=== PATIENT | female | born 1935 | race Caucasian/White ===

== ENCOUNTER 2019-06-24 09:56 | Inpatient (IN) | payer OTHER ==
[~2019-06-24] VITALS: Ht 167.6 cm; Wt 83.1 kg
[~2019-06-24 09:56] MED LIST: AMARYL2 MG PO; ASPIRIN ADULT L81 M1 PO; ASPIRIN CHEWABL81 MG PO; B-121000 MCG PO; B121000 MCG/1 IM; CARAFATE1 G1 PO; COLACE100 MG PO; COMBIGAN 0.2%-010 ML OP; COMBIGAN 0.2%-010 ML OU; COMBIGAN OP; COMFORT MC; D-1000 185 MG-11 TAB PO; DAYPRO600 M1 PO; FERROUS SULFAT325 MG PO; GLIPIZIDE10 M2 PO; GLUCOTROL10 MG PO; HEMOCYTE324 MG PO; K-LOR 20MEQ20 ME1 PO; KEFLEX500 M1 PO; KLOR-CON 1010 ME1 PO; LANTUS SOLOS100 U/M1 SC; LANTUS100 U/ML SC; LANTUS100 U/ML SQ; LASIX40 MG PO; LEVOTHYROXIN0.025 M1 PO; LEVOXYL50 MCG PO; LISINOPRIL/HCTZ1 TA4 PO; LOPRESSOR25 MG PO; LOVENOX30 MG/0.3 SC; MEDROL DOSEPAK4 MG PO; NATURE'S BLEND F1 MG PO; NITROFURANTOIN100 M9 PO; NORCO 5-325 TA1 EACH PO; PLAVIX75 M1 PO; PRILOSEC20 M1 PO; PRILOSEC20 M2 PO; PROTONIX40 MG PO; ROBAXIN750 MG PO; SIMVASTATIN20 MG PO; Synthroid,Levo50 MCG PO; TAPAZOLE5 MG PO; TOPROL XL25 MG PO; TRAD5TAB1 PO; TRAMADOL HCL50 MG PO; VITAMIN C100 M3 PO; VITAMIN D1000 IU PO; VITAMIN D22000 UNIT PO; XALATAN 0.005%2.5 ML OU; XALATAN 2.5 ML2.5 ML OP; XALATAN OP; ZESTRIL10 MG PO; ZOCOR20 MG PO; ZOLOFT25 MG PO
[2019-06-24 09:57] VITALS: BP 131/44
[2019-06-24 10:31] LABS: BILIRUBIN NEGATIVE (NEGATIVE); BLOOD 2+ (NEGATIVE); CLARITY CLOUDY (CLEAR); COLOR YELLOW (YELLOW); GLUCOSE NEGATIVE (NEGATIVE); KETONE NEGATIVE (NEGATIVE); LEUKO ESTERASE 3+ (NEGATIVE); NITRITE NEGATIVE (NEGATIVE); UROBILINOGEN 0.2 E.U./dl (0.2-1.0)
[2019-06-24 10:41] LABS: BACTERIA 4+; EPITHELIAL CELLS 20-30; RBC 41-50 rbc/hpf (0-2); WBC TNTC wbc/hpf (0-5)
[2019-06-24 10:43] LABS: BASO % 0.2 % (0.0-1.0); EOS % 0.1 % (1.0-4.0); HEMATOCRIT 42.6 % (37.0-47.0); HEMOGLOBIN 13.3 g/dl (12.0-16.0); LYMPH # 1.8 10*3/uL (1.3-4.4); LYMPH % 20.4 % (27.0-41.0); MEAN CORPUSCULAR HGB 31.2 pg (27.0-31.0); MEAN CORPUSCULAR HGB CONC 31.2 g/dl (33.0-37.0); MEAN PLATELET VOLUME 9.5 fl (9.6-12.3); MONO # 0.6 10*3/uL (0.1-1.0); MONO % 7.4 % (3.0-9.0); NEUT # 6.1 10*3/uL (2.3-7.9); NEUT % 71.4 % (47.0-73.0); PLATELET COUNT AUTOMATED 204 10*3/uL (130-400); RED BLOOD COUNT 4.26 10*6/uL (4.10-5.10); RED CELL DISTRI WIDTH 14.4 % (0-14.5); WHITE BLOOD COUNT 8.6 10*3/uL (4.8-10.8)
[2019-06-24 10:45] VITALS: BP 132/46
[2019-06-24 11:03] LABS: ALBUMIN 2.8 gm/dl (3.1-4.5); ALKALINE PHOSPHATASE 83 U/L (45-117); BUN 36 mg/dl (7-24); CHLORIDE 108 mmol/L (98-107); CREATININE 1.76 mg/dL (0.55-1.02); POTASSIUM 4.1 mmol/L (3.5-5.1); SGOT/AST 18 IU/L (3-35); SGPT/ALT 17 U/L (12-78); SODIUM 138 mmol/L (136-145); TOTAL PROTEIN 6.5 gm/dL (6.4-8.2); TROPONIN I < 0.015 ng/ml (<0.045)
[2019-06-24 12:23] VITALS: BP 138/48
--- NOTE | 2019-06-24 13:24 | NUR ---
ATTEMPTED TO CALL TO TAKE PT TO FLOOR BUT THEY ARE WORKING ON THE ROOM WILL THEY WILL CALL WHEN READY PER NEVA BIGGS
[2019-06-24] MEDS ORDERED: DONEPEZIL HCL10 MG PO (13:30)
[2019-06-24] MEDS ORDERED: LEVOTHYROXINE125 MCG PO (13:32)
[2019-06-24] MEDS ORDERED: VITAMIN D3125 MC1 PO (13:33)
--- NOTE | 2019-06-24 13:50 | NUR ---
A 83, admitted to , under the services of SHAHRAM Esparza DO with a diagnosis of AFIB WITH SLOW VENTRICULAR RESPONSE. Chief complaint is MULTIPLE COMPLAINTS. Patient arrived via bed from ER. Monitor applied. Initial assessment completed. Vital signs taken and recorded. SHAHRAM ESPARZA DO notified of admission to the unit. Orders received. See assessment for past medical history, medications and allergies. Patient and/or family oriented to unit. [facility] visitation policy reviewed. Clothing/patient valuable form completed. NEVA MATHIS
[2019-06-24 13:58] VITALS: BP 149/54
[2019-06-24] MEDS ORDERED: VITAMIN B-12500 MC3 SL (14:33)
[2019-06-24 16:00] VITALS: BP 146/52
--- NOTE | 2019-06-24 16:46 | NUR ---
DR. BREWER NOTIFIED OF BLOOD SUGAR OF 20. DEXTROSE HUNG. ORDERED TO GIVE PT CRACKERS AND PEANUT BUTTER AND CRACKERS
--- NOTE | 2019-06-24 17:00 | NUR ---
DR. JOHNSON NOTIFIED OF CONSULT. WILL SEE PT TOMORROW.
--- NOTE | 2019-06-24 17:30 | NUR ---
PT BLOOD SUGAR 126 AT THIS TIME. PT VOICES NO COMPLAINTS, CALL LIGHT IN REACH
[2019-06-24 20:00] VITALS: BP 121/41
[2019-06-25] VITALS: BP 144/49
[2019-06-25 07:56] LABS: BASO % 0.3 % (0.0-1.0); EOS # 0.1 10*3/uL (0.0-0.4); EOS % 1.3 % (1.0-4.0); HEMOGLOBIN 12.2 g/dl (12.0-16.0); LYMPH # 2.5 10*3/uL (1.3-4.4); MEAN CELL VOLUME 96.7 fl (81.0-99.0); MEAN CORPUSCULAR HGB CONC 32.1 g/dl (33.0-37.0); MEAN PLATELET VOLUME 9.9 fl (9.6-12.3); MONO # 0.7 10*3/uL (0.1-1.0); MONO % 9.3 % (3.0-9.0); NEUT # 4.3 10*3/uL (2.3-7.9); NEUT % 55.7 % (47.0-73.0); PLATELET COUNT AUTOMATED 201 10*3/uL (130-400); RED BLOOD COUNT 3.93 10*6/uL (4.10-5.10); RED CELL DISTRI WIDTH 14.3 % (0-14.5); WHITE BLOOD COUNT 7.7 10*3/uL (4.8-10.8)
[2019-06-25 08:00] VITALS: BP 108/50
[2019-06-25 08:30] LABS: CREATININE 1.31 mg/dL (0.55-1.02); POTASSIUM 4.1 mmol/L (3.5-5.1)
[2019-06-25 08:32] LABS: PHOSPHOROUS 2.2 mg/dL (2.5-4.9)
[2019-06-25 08:41] LABS: THYROID STIM HORMONE (HS) 1.09 uIU/ml (0.358-4.75)
--- NOTE | 2019-06-25 09:00 | NUR ---
case management visits with patient, she states she lives at home alone, she states she has a stick she uses for ambulation, she states she has people who help her 2 x a day but doesn't know who they are or if they are from a company, case management will contact patient's family regarding discharge plans
[2019-06-25 09:01] LABS: VITAMIN D, 25-HYDROXY 52.4 ng/mL (30-100)
--- NOTE | 2019-06-25 09:40 | NUR ---
SPOKE WITH DR JOHNSON, NOTIFIED HR IN THE 50'S SB ON THE MONITOR AND BP 108/52. ORDERS RECIEVED TO HOLD DOSE OF TOPROL THIS AM
--- NOTE | 2019-06-25 11:19 | NUR ---
CARL MOTIFIED OF CONSULT.
--- NOTE | 2019-06-25 15:22 | NUR ---
case management and conservation planner visited with patient and daughter, daughter stated she lives out of town and her aunt and uncle help her mom, her mom has services from [employer] several times a day, daughter felt patient is weak and may need to go to rehab prior to returning home, she would like her mom referred to [facility] and also [facility], called hospitalist nurse director and asked for physical therapy orders and conservation planner will send referral to both facilities, insurance precert will need obtained prior to patient being discharged
[2019-06-25 16:00] VITALS: BP 130/48
--- NOTE | 2019-06-25 19:30 | NUR ---
PT RESTING IN BED. DAUGHTER AT BEDSIDE. PT STATES SHE IS FEELING GOOD TODAY. BLOOD SUGARS HAVE BEEN STABLE. ASSESSMENT COMPLETE. RESPIRATIONS EASY AND REGULAR. CALL LIGHT WITHIN REACH. WILL CONTINUE TO MONITOR.
[2019-06-25 20:00] VITALS: BP 127/73
[2019-06-26] VITALS: BP 142/84
--- NOTE | 2019-06-26 04:10 | NUR ---
24 HR chart check completed.
--- NOTE | 2019-06-26 07:10 | NUR ---
REPORT RECEIVED. PT SLEEPING AT THIS TIME. NO S/S OF DISTRESS. CALL LIGHT IN REACH
--- NOTE | 2019-06-26 07:45 | NUR ---
Occupational therapy orders received and OT evaluation completed in full on floor four. Patient precautions include FALL RISK, BED/CHAIR ALARM, WEAKNESS, WW, UNSTEADY STANDING BALANCE. Per OT clementina, OT recommends SNF[place], [address]. Thank you for the referral. Theresa Emerson, OTR/L
--- NOTE | 2019-06-26 07:45 | NUR ---
Faxed demographics to [facility] for benefits check.
[2019-06-26 08:00] VITALS: BP 138/62
--- NOTE | 2019-06-26 08:40 | NUR ---
PHYSICAL THERAPY Alix completed moderate level of complexity 71144 recomend SNF at discharge PT to work on transfers,amb, balance/safety and strengthening.Full report to follow. Beulah Agustin PT
--- NOTE | 2019-06-26 09:00 | NUR ---
case management visits with patient, daughter present, [facility] has been [facility], case management/meeting/event planner will follow for accepatance and insurance precert
--- NOTE | 2019-06-26 10:00 | NUR ---
PT DAUGHTER AT BEDSIDE. NO COMPLAINTS/CONCERNS. CALL LIGHT IN REACH
--- NOTE | 2019-06-26 10:55 | NUR ---
Patient requested a referral to [facility]. Benefits are ok for this location. Full referral faxed, requires precert.
[2019-06-26 12:00] VITALS: BP 128/67
[2019-06-26 16:00] VITALS: BP 128/55
--- NOTE | 2019-06-26 19:40 | NUR ---
PT RESTING IN BED. DAUGHTER AT BEDSIDE. PT ALERT AND ORIENTED X3. BLOOD SUGARS HAVE BEEN GOOD. NO COMPLAINTS AT THIS TIME. DENIES THE NEED FOR ANYTHING AT THIS TIME. ASSESSMENT COMPLETE. RESPIRATIONS EASY AND REGULAR. WILL CONTINUE TO MONITOR.
[2019-06-26 20:00] VITALS: BP 138/60
--- NOTE | 2019-06-26 22:31 | NUR ---
24 HR chart check completed.
[2019-06-27] VITALS: BP 155/61
--- NOTE | 2019-06-27 07:57 | NUR ---
Patient has been accepted to [facility] [place] PASS/RR has been started/precert has been started. Waiting on auth.
[2019-06-27 08:00] VITALS: BP 142/64
--- NOTE | 2019-06-27 09:30 | NUR ---
PHYSICAL THERAPY Patient seen this am 1;1 for therapy visit and was resting supine in bed following nursing visit upon therapist arrival. Patient identified by name / and was very soft spoken this morning. OT office assistant was also present for observation only this session as patient presented with continuos IV treatment. Patient reports no new c/o's at this time and transfers supine to sit EOB with MOD A. Patient then performed sit to stand MIN A with use of wh walker standing support, tolerating approx 45 seconds static stand each trial. Patient completed SPT to bedside chair, wh walker, MIN A, demonstrating very slow step sequence and v/c to improve upright posture. Patient also fatigues quickly secondary to increased chest congestion, with mild coughing episodes. Patient remained in bedside chair with call light, tray table, telephone and body alarm for safety. Will continue per POC as tolerated, total treatment time 14 minutes. Collin Jenkins, LINING SETTER
--- NOTE | 2019-06-27 09:45 | NUR ---
OT NOTE Pt was seen this A.M. 1:1 for 20 minute OT session. Upon arrival pt was supine in bed. Pt identified by name and and had no complaints at this time. Pt presented to therapy with IV in LUE which remained in place throughout entire session. Pt transferred supine to sit EOB with modA for assist with UB and moving to the EOB. Pt completed multiple sit to stand transfers from bed level with Emma and use of w/w for UE support. Challenged pt's static standing tolerance needed for increased I in self care tasks and functional transfers, pt was able to tolerate aprox 60 seconds before sitting due to fatigue. Throughout pt was educated on energy conservation techniques for increased I and enhanced safety, pt verbalized understanding. Pt then completed standing pivot from the EOB to the recliner with Emma and use of w/w for UE support. There she was left sitting upright with call light in hand, tray table in place, and body alarm activated for safety. Continue with rec D/C plan to SNF. WANDA Edmonds
--- NOTE | 2019-06-27 10:56 | NUR ---
Updated clinicals and therapy notes faxed to [facility] per request to continue precert. Waiting on auth
--- NOTE | 2019-06-27 11:14 | NUR ---
Patient has received auth for [facility]. Patient can go if medically stable for discharge.
--- NOTE | 2019-06-27 11:23 | NUR ---
In to see patient and daughter to notify they have authorization to go to [facility] and hospitalists have been notified. Daughter stated she will go get patient warm clothes while patient eats lunch and transport her in a little while. NH, nursing/inside steward/stewardess notified.
[2019-06-27] MEDS ORDERED: Humalog SQ (11:36)
[2019-06-27 12:00] VITALS: BP 120/50
[2019-06-27] MEDS ORDERED: XARE15TA PO (14:06)
--- NOTE | 2019-06-27 15:15 | NUR ---
Discharge instructions reviewed with patient/family. Patient receptive and verbalizes understanding. Follow-up care arranged. Written instructions given to patient/family. HEPLOCK AND TECHNOLOGY INSTRUCTOR DISCONTINUED. PT DISCHARGED VIA DAUGHTER'S PRIVATE CAR. REPORT GIVEN. VAL WINTERS
--- NOTE | 2019-06-27 15:55 | NUR ---
OCCUPATIONAL THERAPY CO-SIGN I approve of the Occupational Therapy notes written above. MARGUERITE CUEVAS OTR/Grady
--- NOTE | 2019-06-28 10:50 | NUR ---
PHYSICAL THERAPY CO-SIGN I approve of the Physical Therapy notes written above. Beulah Agustin PT
== END 2019-06-27 15:27 | disposition other institution (70) | DRG 637 ==
LOC: ED 09:56 → 4E 12:15 → EDHOLD 12:15 → 4E 13:04
PROVIDERS: Emergency Medicine; Internal Medicine; ADMIT Internal Medicine
DX: E11.649 Type 2 diabetes mellitus with hypoglycemia without coma (principal); G93.41 Metabolic encephalopathy; N30.01 Acute cystitis with hematuria; I48.91 Unspecified atrial fibrillation; H40.9 Unspecified glaucoma; N18.3 Chronic kidney disease, stage 3 (moderate); E11.22 Type 2 diabetes mellitus with diabetic chronic kidney disease; E11.319 Type 2 diabetes mellitus with unspecified diabetic retinopathy without macular edema; E03.9 Hypothyroidism, unspecified; E55.9 Vitamin D deficiency, unspecified; I25.10 Atherosclerotic heart disease of native coronary artery without angina pectoris; E78.5 Hyperlipidemia, unspecified; F32.9 Major depressive disorder, single episode, unspecified; G31.84 Mild cognitive impairment of uncertain or unknown etiology; Z95.1 Presence of aortocoronary bypass graft; Z82.49 Family history of ischemic heart disease and other diseases of the circulatory system; Z79.82 Long term (current) use of aspirin

== ENCOUNTER 2019-08-11 18:52 | Inpatient (IN) | payer OTHER ==
[~2019-08-11] VITALS: Ht 167.6 cm; Wt 66.3 kg
[~2019-08-11 18:52] MED LIST changes: +DONEPEZIL HCL10 MG PO; +Humalog SQ; +LEVOTHYROXINE125 MCG PO; +VITAMIN B-12500 MC3 SL; +VITAMIN D3125 MC1 PO; +XARE15TA PO
[2019-08-11 18:59] VITALS: BP 133/48
--- NOTE | 2019-08-11 19:43 | NUR ---
PT W/O COMPLAINTS VOICED,SAFETY PRECAUTIONS INTACT AND CALL LIGHT WITHIN REACH.
[2019-08-11 19:55] LABS: BILIRUBIN NEGATIVE (NEGATIVE); BLOOD 3+ (NEGATIVE); CLARITY TURBID (CLEAR); COLOR BROWN (YELLOW); GLUCOSE NEGATIVE (NEGATIVE); KETONE 2+ (NEGATIVE); LEUKO ESTERASE 2+ (NEGATIVE); NITRITE POSITIVE (NEGATIVE); SPECIFIC GRAVITY 1.015 (1.005-1.030)
[2019-08-11 20:01] LABS: BACTERIA 4+; WBC TNTC wbc/hpf (0-5)
[2019-08-11 21:07] LABS: BASO % 0.2 % (0.0-1.0); EOS % 0.1 % (1.0-4.0); HEMATOCRIT 43.8 % (37.0-47.0); HEMOGLOBIN 14.9 g/dl (12.0-16.0); LYMPH # 3.9 10*3/uL (1.3-4.4); LYMPH % 34.7 % (27.0-41.0); MEAN CELL VOLUME 92.6 fl (81.0-99.0); MEAN CORPUSCULAR HGB 31.5 pg (27.0-31.0); MEAN PLATELET VOLUME 10.6 fl (9.6-12.3); MONO # 0.3 10*3/uL (0.1-1.0); MONO % 2.9 % (3.0-9.0); NEUT # 6.9 10*3/uL (2.3-7.9); NEUT % 61.6 % (47.0-73.0); PLATELET COUNT AUTOMATED 348 10*3/uL (130-400); RED BLOOD COUNT 4.73 10*6/uL (4.10-5.10); RED CELL DISTRI WIDTH 17.2 % (0-14.5); WHITE BLOOD COUNT 11.2 10*3/uL (4.8-10.8)
--- NOTE | 2019-08-11 21:11 | NUR ---
LAB STATES BLOOD SAMPLE HEMOLYZED PER COLOR OF BLOOD. WILL NOTIFY PRIMARY RN.
[2019-08-11 21:19] VITALS: BP 136/58
--- NOTE | 2019-08-11 22:30 | NUR ---
PT INCONTENT OF URINE, BRIEF CHANGED, JACI CARE PROVIDED. PT GOWN CHANGED. REDNESS AND SM SCRATCH TO L BUTTOCK NOTED, NO OPEN WOUNDS NOTED. PT REPOSITIONED FOR COMFORT. CALL LIGHT IN REACH. WILL CONTINUE TO MONITOR.
[2019-08-11 23:11] LABS: ALBUMIN 3.1 gm/dl (3.1-4.5); CREATININE 2.68 mg/dL (0.55-1.02); TOTAL PROTEIN 5.9 gm/dL (6.4-8.2)
--- NOTE | 2019-08-11 23:30 | NUR ---
UPDATED PT FAMILY CHRIS, , OF PT ADMISSION STATUS.
--- NOTE | 2019-08-11 23:35 | NUR ---
PT RESTING ON CART, CALL LIGHT IN REACH. CALM, COOPERATIVE, PLEASENTLY CONFUSED . WILL CONTINUE TO MONITOR.
[2019-08-12] VITALS (9 sets, daily range): BP systolic 131–165; BP diastolic 45–67
--- NOTE | 2019-08-12 00:10 | NUR ---
THIS RN AT BEDSIDE ADMINISTERING MEDICATIONS, PT COUGHING UP THICK, BROWN/RED TINGED MUCOUS. ED MD MADE AWARE. WILL CONTINUE TO MONITOR. PT. PT DENIES PAIN. PT CONTINUES TO BE PLEASENTLY CONFUSED.
--- NOTE | 2019-08-12 01:00 | NUR ---
A 83, admitted to , under the services of TERA Gupta DO with a diagnosis of UTI, HAKEEM. Chief complaint is DECREASED APPETITE. Patient arrived via bed from ER. Monitor applied. Initial assessment completed. Vital signs taken and recorded. TERA GUPTA DO notified of admission to the unit. Orders received. See assessment for past medical history, medications and allergies. Patient and/or family oriented to unit. [facility] Clothing/patient valuable form completed. SALVADOR HARGROVE
[2019-08-12] MEDS ORDERED: GLUCOPHAGE1000 MG PO (01:23)
[2019-08-12] MEDS ORDERED: GLUCOPHAGE500 M1 PO (01:24)
[2019-08-12] MEDS ORDERED: LOPRESSOR25 MG PO (01:25)
[2019-08-12] MEDS ORDERED: MYLANTA MAXIMU355 M1 PO (01:28)
[2019-08-12] MEDS ORDERED: XARE20MG PO (01:31)
--- NOTE | 2019-08-12 01:33 | NUR ---
MED REC COMPLETED WITH LIST FROM LONGTERM
--- NOTE | 2019-08-12 01:45 | NUR ---
DISCUSSED WITH DR. GUPTA AT THIS TIME THAT PATIENT HAS A PAPER DATED 07/23/[address] PRIETO ALONG WITH THE PATIENTS POWER OF DATA ANALYSIS INTERN MATILDE BARRERA, HAVE MADE THE PATIENT A DO NOT RESUSCITATE, BUT IT DOES NOT SPECIFY WHETHER THE PATIENT IS A COMFORT CARE ARREST, OR COMFORT CARE. SHE STATED TO MAKE THE PATIENT A COMFORT CARE ARREST AT THIS TIME AND GET CLARIFICATION FROM THE POWER OF DATA ANALYSIS INTERN.
--- NOTE | 2019-08-12 02:10 | NUR ---
SPOKE WITH DR. ACKERMAN AT THIS TIME PER REQUEST OF DR. GUPTA. DR. GUPTA INQUIRING ABOUT WHAT FLUIDS TO GIVE THE PATIENT. DISCUSSED WITH DR. ACKERMAN THE PATIENTS LABS (POTASSIUM,BUN,CREATININE,CHLORIDE,SODIUM,CALCIUM). NOTIFIED HER PATIENT WAS ADMITTED WITH UTI AND ALTERED MENTAL STATUS. CANDY TAVARES INQUIRED IF SHE SHOULD PUT 0.45% NS AT 60ML/HR ON THE PATINT. DR. ACKERMAN STATED TO GO AHEAD AND GIVE HER 0.9% NS AT 60ML/HR DUE TO HER AGE. NOTIFIED HER OF MEDICATIONS PATIENT RECIEVED IN THE ER WELL.
--- NOTE | 2019-08-12 02:55 | NUR ---
CANDY TAVARES MADE AWARE OF PATIENT HAVING 1200ML TOTAL OF NS IN THE ER AND THAT THE BOLUS WAS STOPPED WHEN THE PATIENT GOT UP TO THE FLOOR
--- NOTE | 2019-08-12 04:00 | NUR ---
NOTIFIED DR. GUPTA OF PATIENTS WOUNDS
--- NOTE | 2019-08-12 04:36 | NUR ---
NOTIFIED DR. GUPTA AT THIS TIME THAT PATIENT IS DIPPING DOWN INTO THE 40'S. PATIENT IS ASYMPTOMATIC, SLEEPING. IV FLUIDS CONTINUED TO INFUSE. PATIENT HAS HISTORY OF BEING AFIB WITH A LOW RATE AND DR. GUPTA IS AWARE. WILL MONITOR
--- NOTE | 2019-08-12 06:35 | NUR ---
VALTINO Megan [id number] Please refer to the physician's history and physical for past medical history, comorbid conditions, and allergies. Diagnosis: UTI METABOLIC ENCEPHALOPATHY ACUTE RENAL INSUFF Iker Score: 14,MODERATE RISK WOUND DESCRIPTIONS: Wound Number: 1 Location of the wound: right great toe Type of wound: unstageable Thickness: Full Size: 0.8cm x 1.4cm x <0.1cm Tunneling: none Undermining: none Sinus Tract: none Presence of Exudate: none Amount: None Color: Red Odor: None Periwound Skin Appearance: Normal Wound edges: approximated Pain (associated with wound): none at time of assessment How does patient state this happened? pt unable to state how this happened Wound Number: 2 Location of the wound: right heel Type of wound: unstageable Thickness: Full Size: 1.4cm x 1.5cm x <0.1cm Tunneling: none Undermining: none Sinus Tract: none Presence of Exudate: none Amount: None Color: Brown, yellow Odor: None Periwound Skin Appearance: Erythema Wound edges: approximated Pain (associated with wound): none at time of assessment How does patient state this happened? pt unable to state how this happened Wound Number: 3 Location of the wound: left heel Type of wound: unstageable Thickness: Full Size: 2.0cm x 2.6cm x <0.1cm Tunneling: none Undermining: none Sinus Tract: none Presence of Exudate: none Amount: None Color: Brown Odor: None Periwound Skin Appearance: Erythema Wound edges: approximated Pain (associated with wound): none at time of assessment How does patient state this happened? pt unable to state how this happened Wound Number: 4 Location of the wound: left buttocks Type of wound: DTI Size: 7.0cm x 0.7cm x <0.1cm Tunneling: none Undermining: none Sinus Tract: none Presence of Exudate: none Amount: None Color: Purple, dark red Odor: None Periwound Skin Appearance: Normal Wound edges: approximated Pain (associated with wound): none at time of assessment How does patient state this happened? pt unable to state how this happened Wound Number: 5 Location of the wound: coccyx Type of wound: DTI Size: 2.2cm x 1.0cm x <0.1cm Tunneling: none Undermining: none Sinus Tract: none Presence of Exudate: none Amount: None Color: Purple, dark red Odor: None Periwound Skin Appearance: Normal Wound edges: approximated Pain (associated with wound): none at time of assessment How does patient state this happened? pt unable to state how this happened Wound Number: 6 Location of the wound: right buttocks Type of wound: DTI Size: 0.7cm x 1.2cm x <0.1cm Tunneling: none Undermining: none Sinus Tract: none Presence of Exudate: none Amount: None Color: Purple, dark red Odor: None Periwound Skin Appearance: Normal Wound edges: approximated Pain (associated with wound): none at time of assessment How does patient state this happened? pt unable to state how this happened Wound Number: 7 Location of the wound: right lower abdominal fold Thickness: Partial Size: 0.7cm x 8.0cm x <0.1cm Tunneling: none Undermining: none Sinus Tract: none Presence of Exudate: Serous Amount: Light Color: Red Odor: None Periwound Skin Appearance: Normal Wound edges: approximated Pain (associated with wound): none at time of assessment How does patient state this happened? pt unable to state how this happened Patient has multiple red blanchable areas noted to bilateral feet at time of assessment. No open areas noted at time of assessment. No draiange noted at time of assessment. Surface the patient is resting on: Isoflex SKIN PREVENTION RECOMMENDATION: 1. Pressure redistribution support surface as appropriate 2. Elevate heels 3. Remove boots/TEDS every shift and reapply 4. Head of bed 30 degrees as tolerated 5. Assess nutrition and hydration 6. Manage moisture 7. Avoid the use of containment devices while in bed 8. Use absorptive products on surfaces limit layers of linens on bed 9. Turn and reposition every 1-2 hours in bed and every 1 hour in chair as tolerated 10. Weight shifts every 15 minutes while up in chair 11. Offloading with pillows or device to keep heels elevated off bed 12. Monitor skin at least every shift 13. Inspect under medical devices twice a day WOUND TREATMENT RECOMMENDATIONS: Venous and arterial studies to BLE's due to non-healing wound Consult podaitry for areas to bilateral heels and right great toe. Heel raiser pro boots to bilateral feet while in bed Wheelchair cushion when oob DTI guidelines: Apply sureprep to right buttocks, left buttocks and coccyx allow time to dry then apply optifoam sacral gentle daily and prn for soiling Unstageable guidelines: Cleanse right great toe, right heel and left heel with nss and apply betadine soaked adaptic cover with abd pad daily and prn for soiling. Partial thickness guidelines: Cleanse right abdominal fold with nss and apply sureprep around the wound hydrogel to wound bed and cover with optifoam gentle every 2 days and prn for soiling.
[2019-08-12 07:01] LABS: BASO % 0.2 % (0.0-1.0); EOS % 0.3 % (1.0-4.0); HEMATOCRIT 42.6 % (37.0-47.0); LYMPH # 4.6 10*3/uL (1.3-4.4); LYMPH % 39.8 % (27.0-41.0); MEAN CELL VOLUME 94.9 fl (81.0-99.0); MEAN CORPUSCULAR HGB 31.2 pg (27.0-31.0); MEAN CORPUSCULAR HGB CONC 32.9 g/dl (33.0-37.0); MEAN PLATELET VOLUME 10.1 fl (9.6-12.3); MONO # 0.8 10*3/uL (0.1-1.0); MONO % 7.1 % (3.0-9.0); NEUT % 51.3 % (47.0-73.0); PLATELET COUNT AUTOMATED 300 10*3/uL (130-400); RED BLOOD COUNT 4.49 10*6/uL (4.10-5.10); RED CELL DISTRI WIDTH 16.9 % (0-14.5); WHITE BLOOD COUNT 11.6 10*3/uL (4.8-10.8)
[2019-08-12 07:17] LABS: CREATININE 2.55 mg/dL (0.55-1.02)
[2019-08-12 07:27] LABS: FREE T4 0.84 ng/dl (0.76-1.46)
[2019-08-12 07:32] LABS: POTASSIUM 4.6 mmol/L (3.5-5.1); THYROID STIM HORMONE (HS) 23.5 uIU/ml (0.358-4.75)
[2019-08-12 07:34] LABS: PHOSPHOROUS 0.2 mg/dL (2.5-4.9)
--- NOTE | 2019-08-12 07:45 | NUR ---
NOTIFIED REGARDING CRITICAL PHOS LEVEL. ON PHONE WITH AT THIS TIME.
--- NOTE | 2019-08-12 08:07 | NUR ---
Nursing screen received and chart reveiwed. Patient admitted from [facility] with decreased appetite and increased confusion, UTI. If patient should have a decline in ADLs then refer to OT. Thank you. Sandie Busby OTR/L
--- NOTE | 2019-08-12 08:16 | NUR ---
PHYSICAL THERAPY Screen received pt admitted with metabolic encephalopathy with UTI. Pt resident [facility]. Please consult PT if pt has a decline in functional status below baseline, thank you. Beulah Agustin PT
--- NOTE | 2019-08-12 08:52 | NUR ---
Dr. Rand notified of wound care recommendations.
--- NOTE | 2019-08-12 10:03 | NUR ---
IN TO SEE PATIENT.
--- NOTE | 2019-08-12 11:17 | NUR ---
Patient is LTC from [facility]. DISPLAY ARTIST faxed updated inpatient information on this date. Patient will return upon discharge. DISPLAY ARTIST will continue to follow and address needs as they arise.
--- NOTE | 2019-08-12 13:30 | NUR ---
Telesales Specialist in to talk to patient. Patient states lives at [facility] with skilled staff. There are 0 steps in the home. Physician: Simin Pharmacy: [facility] Home health services: None Patient's level of ADLs: MODERATE ASSIST Patient has working utilities: yes DME: skilled facility Follow-up physician's appointment after d/c: yes Does patient want to access PORTAL?: non Discharge plan is for patient to return back to [facility]. JERAD MENDOZA
--- NOTE | 2019-08-12 16:02 | NUR ---
WOUND DRESSINGS APPLIED BY RAUL BIGGS.
--- NOTE | 2019-08-12 19:15 | NUR ---
PER MEKA TAVARES ORDER 2V CHEST XRAY FOR IN THE MORNING.
[2019-08-13] VITALS: BP 145/55
--- NOTE | 2019-08-13 02:00 | NUR ---
CALLED DR. ACKERMAN TO CLARIFY ORDERS. D/C ALL IV PHOSPHORUS ORDERS. DR ACKERMAN ONLY WANTED TO HAVE 2 BAGS TOTAL. ORDERS D/C WILL CONTINUE TO MONITOR.
--- NOTE | 2019-08-13 04:17 | NUR ---
Upon discharge recommend patient to follow up for wound care in outpatient setting continue current wound care orders at discharging facility.
[2019-08-13 06:12] LABS: BASO % 0.2 % (0.0-1.0); EOS # 0.1 10*3/uL (0.0-0.4); EOS % 0.6 % (1.0-4.0); HEMATOCRIT 39.2 % (37.0-47.0); HEMOGLOBIN 13.2 g/dl (12.0-16.0); LYMPH # 4.5 10*3/uL (1.3-4.4); LYMPH % 42.7 % (27.0-41.0); MEAN CELL VOLUME 92.5 fl (81.0-99.0); MEAN CORPUSCULAR HGB 31.1 pg (27.0-31.0); MEAN CORPUSCULAR HGB CONC 33.7 g/dl (33.0-37.0); MEAN PLATELET VOLUME 9.9 fl (9.6-12.3); MONO # 0.8 10*3/uL (0.1-1.0); MONO % 7.6 % (3.0-9.0); NEUT # 5.1 10*3/uL (2.3-7.9); NEUT % 48.1 % (47.0-73.0); PLATELET COUNT AUTOMATED 271 10*3/uL (130-400); RED BLOOD COUNT 4.24 10*6/uL (4.10-5.10); RED CELL DISTRI WIDTH 16.8 % (0-14.5); WHITE BLOOD COUNT 10.5 10*3/uL (4.8-10.8)
[2019-08-13 06:19] LABS: CREATININE 2.16 mg/dL (0.55-1.02); PHOSPHOROUS 3.3 mg/dL (2.5-4.9)
[2019-08-13 06:54] LABS: POTASSIUM 3.4 mmol/L (3.5-5.1)
[2019-08-13 08:00] VITALS: BP 132/52
--- NOTE | 2019-08-13 08:00 | NUR ---
Dr. Flores notified of wound care recommendations
--- NOTE | 2019-08-13 09:00 | NUR ---
DR. HUTTON AWARE OF CONSULT.
--- NOTE | 2019-08-13 10:30 | NUR ---
Possible discharge back to [facility] either today or tomorrow per multidisciplinary discharge planning meeting.
[2019-08-13 12:00] VITALS: BP 121/66
--- NOTE | 2019-08-13 12:32 | NUR ---
PHYSICAL THERAPY PT evaluation attempted. Patient out of room for Ultrasound. Will try again at a later time/date. Thank you. Citlaly Johnson,PT,DPT
[2019-08-13 13:55] LABS: VITAMIN D, 25-HYDROXY 44.2 ng/mL (30-100)
[2019-08-13 13:56] LABS: PTH INTACT 22.8 pg/mL (18.5-88.0)
--- NOTE | 2019-08-13 14:07 | NUR ---
PAO faxed updates to [facility] on this date. Patient can return upon medical stabalization.
--- NOTE | 2019-08-13 15:38 | NUR ---
Occupational Therapy evaluation completed on four with full evaluation to follow. Recommend occupational therapy per plan of care and SNF upon discharge. Thank you for this referral. Theresa Emerson OTR/L
--- NOTE | 2019-08-13 15:38 | NUR ---
PHYSICAL THERAPY Physical Therapy evaluation completed on 4E with full evaluation to follow. Moderate complexity PT evaluation per chart review and evaluation, [address]. Recommend physical therapy per plan of care and SNF upon discharge. Thank you for this referral.Citlaly Johnson,PT,DPT
[2019-08-13 16:00] VITALS: BP 130/60
[2019-08-13 20:00] VITALS: BP 147/59
--- NOTE | 2019-08-13 22:15 | NUR ---
pt. pulled other IV out. IV started left forearm with #22 angiocath after 1st attempts. The IV site was prepped with Chloraprep. Heparin lock attached. IV solution 0.9ns infusing at 80 cc/hr. Sterile dressing applied. Patient tolerated precedure well. Procedure performed according to [facility] policy & procedure. RAMA RENTERIA
--- NOTE | 2019-08-13 22:15 | NUR ---
PATIENT PULLED IV OUT. IV started left forearm with #22 angiocath after 1st attempts. The IV site was prepped with Chloraprep. Heparin lock attached. IV solution 0.9ns infusing at 80 cc/hr. Sterile dressing applied. Patient tolerated precedure well. Procedure performed according to [facility] policy & procedure. RAMA RENTERIA
--- NOTE | 2019-08-13 23:27 | NUR ---
CALLED DR. GRIGSBY ANSWERING SERVICE UNABLE TO LEAVE MESSAGE.
[2019-08-14] VITALS: BP 159/57
--- NOTE | 2019-08-14 01:42 | NUR ---
24 HR chart check completed.
[2019-08-14 08:00] VITALS: BP 136/58
[2019-08-14 08:10] LABS: BASO % 0.4 % (0.0-1.0); EOS # 0.1 10*3/uL (0.0-0.4); EOS % 0.8 % (1.0-4.0); HEMATOCRIT 38.7 % (37.0-47.0); HEMOGLOBIN 12.8 g/dl (12.0-16.0); LYMPH # 3.7 10*3/uL (1.3-4.4); MEAN CORPUSCULAR HGB 30.8 pg (27.0-31.0); MEAN CORPUSCULAR HGB CONC 33.1 g/dl (33.0-37.0); MONO # 0.8 10*3/uL (0.1-1.0); MONO % 7.6 % (3.0-9.0); NEUT # 5.3 10*3/uL (2.3-7.9); NEUT % 53.4 % (47.0-73.0); PLATELET COUNT AUTOMATED 263 10*3/uL (130-400); RED BLOOD COUNT 4.16 10*6/uL (4.10-5.10); RED CELL DISTRI WIDTH 16.7 % (0-14.5); WHITE BLOOD COUNT 9.9 10*3/uL (4.8-10.8)
[2019-08-14 08:19] LABS: ALBUMIN 2.8 gm/dl (3.1-4.5); CREATININE 1.54 mg/dL (0.55-1.02); POTASSIUM 3.2 mmol/L (3.5-5.1); TOTAL PROTEIN 5.7 gm/dL (6.4-8.2)
--- NOTE | 2019-08-14 08:37 | NUR ---
DR. CRUZ NOTIFIED OF CONSULT.
[2019-08-14 08:41] LABS: PHOSPHOROUS 1.6 mg/dL (2.5-4.9)
--- NOTE | 2019-08-14 09:40 | NUR ---
OT NOTE Pt was seen this A.M. 1:1 for 20 minute OT session. Upon arrival pt was supine in bed. Pt identified by name and and had no complaints at this time other than generalized weakness and being "very fearful of standing." Pt transferred supine to sit EOB with Emma for assist with UB. Pt was educated on use of bed rails for increased I and improved technqiue. Sit to stand completed from bed level with Emma X 2 and use of w/w for UE support. Upon inital rise pt was very retropulsive requiring modA to correct. Functional mobility was then taken to the recliner with Emma and use of w/w. She then required a seated rest break due to complaints of fatigue and fear of falling. Sit to stand completed from recliner with Emma X 2 and use of w/w, again pt was very retropulsive requiring modA to correct. Standing pivot completed from the recliner to the bedside commode with Emma and verbal prompts for walker safety with turns. Pt transferred on to bedside commode with CGA and off with modA X 2. Standing pivot then completed back to the recliner with Emma and use of w/w. Pt was left sitting upright in the recliner with call light in hand, tray table in place, and body alarm activated for safety. Continue with rec D/C plan to SNF. WANDA Edmonds
--- NOTE | 2019-08-14 09:41 | NUR ---
PHYSICAL THERAPY TREATMENT TIME: OUT 09:41 22 MINUTES TOTAL Patient presented to therapy in supine with head of bed elevated and bed alarm activated with report of no pain or other complaints. Patient gives informed consent for treatment. Patient was identified by name and on wristband. Patient has infusing IV at this time. Patient performed supine to sitting on EOB with MIN A X 1. Patient sat on EOB with SBA. Patient scooted forwards to EOB with CGA-SBA. Patient sit to stand from EOB with MIN A X 2 with verbal cues for pushing off the bed with hands. Patient stood at Walker with CGA and took 5 STEPS with Walker and then turned to back up to bedside commode. Patient sat on commode with CGA x 1 WITH VERABL CUES FOR PUTTING HANDS BACK ON ARMRESTS OF COMMODE WITH HANDS as she sat. Patient sat without following these instructions, keeping her hands on Walker. Patient sit to stand from commode with MOD A X 2. Patient transferred back int obedside chair with MIN A X 1-CGA. Patient was left in bedside chair with chair alarm tested and atttached to patient, call light within reach and LEs in low postion. Patient was 1;1 with this MECHANICAL DESIGN ENGINEER [employer]ODUCTS for 20 minutes total. PIO SPRAGUE MECHANICAL DESIGN ENGINEER [employer]ODUCTS
--- NOTE | 2019-08-14 11:05 | NUR ---
[facility]O faxed all [facility]. Insurance verified, and precert started. Once pre-cert is attained and patient is medically stable patient can discharge to [facility].
[2019-08-14 12:00] VITALS: BP 131/74
--- NOTE | 2019-08-14 15:36 | NUR ---
OCCUPATIONAL THERAPY CO-SIGN I approve of the Occupational Therapy notes written above. ELIZABETH ARCEO, OTR/L
--- NOTE | 2019-08-14 15:54 | NUR ---
PAO notified on this date that pre-cert has been obtained. Patient can discharge to [facility] once medically stable.
[2019-08-14 16:00] VITALS: BP 121/64
[2019-08-14 20:00] VITALS: BP 159/59
[2019-08-15] VITALS: BP 140/78
[2019-08-15 06:17] LABS: BASO % 0.2 % (0.0-1.0); EOS # 0.1 10*3/uL (0.0-0.4); EOS % 0.9 % (1.0-4.0); HEMOGLOBIN 12.4 g/dl (12.0-16.0); LYMPH # 3.8 10*3/uL (1.3-4.4); MEAN CORPUSCULAR HGB 30.8 pg (27.0-31.0); MEAN CORPUSCULAR HGB CONC 33.5 g/dl (33.0-37.0); MEAN PLATELET VOLUME 9.8 fl (9.6-12.3); MONO # 0.9 10*3/uL (0.1-1.0); MONO % 8.3 % (3.0-9.0); NEUT # 5.9 10*3/uL (2.3-7.9); NEUT % 54.9 % (47.0-73.0); PLATELET COUNT AUTOMATED 257 10*3/uL (130-400); RED BLOOD COUNT 4.02 10*6/uL (4.10-5.10); RED CELL DISTRI WIDTH 16.8 % (0-14.5); WHITE BLOOD COUNT 10.8 10*3/uL (4.8-10.8)
[2019-08-15 06:49] LABS: CREATININE 1.29 mg/dL (0.55-1.02); PHOSPHOROUS 2.4 mg/dL (2.5-4.9)
--- NOTE | 2019-08-15 07:00 | NUR ---
ARRIVED ON SHIFT, PATIENT SLEEPING, BUT AROUSABLE. INTRODUCED SELF, BED IN LOW POSITION, WHEEL LOCKS ENGAGED, SR UP X 2 FOR TURNING AND REPOSITIONING, BED ALARM ON, CALL LIGHT WITHIN REACH, NO NEEDS [id number] AT THIS TIME, WHITE BOARD UPDATED.
[2019-08-15 08:00] VITALS: BP 162/64
--- NOTE | 2019-08-15 08:28 | NUR ---
Shift chart check completed.
--- NOTE | 2019-08-15 08:56 | NUR ---
SPEECH PATHOLOGY Clinical swallowing evaluation completed as per orders due to weakness when swallowing and poor po intake. Patient was admitted with UTI, metabolic encephalopathy, dehydration, acute renal insufficiency. Further history includes dementia, HTN, DM Mi, diabetic retinopathy. Patient is ordered a regular diet and thin liquid. She was seen this am at bedside. Patient was alert and pleasantly confused. Oral exam revealed mild lingual weakness and reduced ROM. Patient was assessed with thin liquid and coarse solid. Patient displayed a mild oral dysphagia characterized by slow but functional mastication. Once she swallowed there was no residue, cough or wet vocal quality. Recommend patient remain on present diet with use of universal safe swallow precautions. Short term f/u therapy is recommended to ensure safety of diet. Results and grayson. were shared with ordering physician who verbalized understanding. Refer to report in [employer] for further information. Thank you for this referral. RONALDO MONTOYA MSCCC-NEWS AGENT
--- NOTE | 2019-08-15 10:02 | NUR ---
OT NOTE Pt was seen this A.M. 1:1 for 25 minute OT session. Upon arrival pt was supine in bed. Pt identified by name and and had no complaints at this time. Pt transferred supine to sit EOB with Emma for assist with UB. Sit to stand completed from bed level with Emma X 2 and use of w/w for UE support. Pt was educated on proper hand placement for increased I and improved technique. Upon inital rise pt had mild LOB backwards that was able to be self corrected. Functional mobility was then completed to the recliner with CGA and use of w/w. After a seated rest break pt transferred sit to stand from chair level with modA X 2 and use of w/w for UE support. Attempted to complete functional mobility to the bathroom and pt was able to make it half way then required a seated rest break due to quick onset of fatigue and being fearful of falling. After a seated rest break pt completed sit to stand from chair level with Emma X 2 and completed functional mobility back to the recliner with CGA and use of w/w. Pt was left sitting upright in the recliner with call light in hand, tray table in place, and body alarm activated for safety. Continue with rec D/C plan to SNF. MATHIEU Edmonds/Grady
[2019-08-15] MEDS ORDERED: MAGOX 400400 MG PO (10:07)
--- NOTE | 2019-08-15 10:17 | NUR ---
PHYSICAL THERAPY TREATMENT TIME: IN 09:37 AM Patient presented to therapy in supine with head of bed elevated and bed laarm activated and having just finished breakfast , which she did't eat much of. Patient was identified by name and on wristband. Patient gave informed consent for treatment. Patient has IV unfusing at this time. Patient completed supine to sitting at EOB with SBA-CGA. Patient sat on EOB SBA. Patient scooted to EOB with SBA. Patient completed sit to stand from EOB MIN A X 2. Patient ambulated with Wh Walker and CGA X 2 FOR 5' X 1 and then backed up to bedside chair and sat with CGA and verbal cues for putting hands back on armrests of chair. Patient sit to stand out of bedside chair with MIN A X 2. Patient ambulated with Wh Walker and CGA X 2 8' x 1 to low chair with no LOB and fatigue , which caused her to have to sit in bedside chair for restbreak. Patient sit to stand out of low chair with MIN A X 2 to bedside chair with CGA. Patient sat in bedside chair with CGA. Patient was left in bedside chair with call light within reach, chair alarm tested and attached to patient and LEs in low postion. Patient was 1:1 with this PHYTOPATHOLOGY TEACHER for 20 minuts total. PIO SPRAGUE PHYTOPATHOLOGY TEACHER
--- NOTE | 2019-08-15 12:41 | NUR ---
Patient is discharge at this time to [facility] [employer]. DC information faxed, [place], nursing/silver steward and family notified.
--- NOTE | 2019-08-15 13:35 | NUR ---
Discharge instructions reviewed with ANSHU PENA AT [facility], HE VERSED UNDERSTANDING, [facility] HERE TO TAKE PATIENT, IV REMOVED. ALL DOCUMENTATION COMPLETED. STERLING GARCIA
--- NOTE | 2019-08-16 07:39 | NUR ---
OCCUPATIONAL THERAPY CO-SIGN I approve of the Occupational Therapy notes written above. ELIZABETH ARCEO, OTR/L
--- NOTE | 2019-08-16 07:59 | NUR ---
PHYSICAL THERAPY CO-SIGN I approve of the Physical Therapy notes written above. Beulah Agustin PT
== END 2019-08-15 13:35 | disposition other institution (70) | DRG 682 ==
LOC: ED 18:52 → 4E 23:46 → EDHOLD 23:46 → 4E 08-12 00:47
PROVIDERS: Emergency Medicine; Hospitalist; Internal Medicine; ADMIT Internal Medicine
DX: N17.0 Acute kidney failure with tubular necrosis (principal); G93.41 Metabolic encephalopathy; N39.0 Urinary tract infection, site not specified; E87.1 Hypo-osmolality and hyponatremia; I50.32 Chronic diastolic (congestive) heart failure; E44.0 Moderate protein-calorie malnutrition; I13.0 Hypertensive heart and chronic kidney disease with heart failure and stage 1 through stage 4 chronic kidney disease, or unspecified chronic kidney disease; E87.2 Acidosis; F02.81 Dementia in other diseases classified elsewhere, unspecified severity, with behavioral disturbance; J98.11 Atelectasis; I82.412 Acute embolism and thrombosis of left femoral vein; N18.4 Chronic kidney disease, stage 4 (severe); E86.0 Dehydration; E87.5 Hyperkalemia; E11.65 Type 2 diabetes mellitus with hyperglycemia; E11.22 Type 2 diabetes mellitus with diabetic chronic kidney disease; E11.319 Type 2 diabetes mellitus with unspecified diabetic retinopathy without macular edema; E03.9 Hypothyroidism, unspecified; E78.5 Hyperlipidemia, unspecified; F32.9 Major depressive disorder, single episode, unspecified; E53.8 Deficiency of other specified B group vitamins; K59.00 Constipation, unspecified; I48.91 Unspecified atrial fibrillation; Z66 Do not resuscitate; Z51.5 Encounter for palliative care; L89.622 Pressure ulcer of left heel, stage 2; L89.611 Pressure ulcer of right heel, stage 1; B96.89 Other specified bacterial agents as the cause of diseases classified elsewhere; E87.6 Hypokalemia; I70.203 Unspecified atherosclerosis of native arteries of extremities, bilateral legs; G30.9 Alzheimer's disease, unspecified; E83.42 Hypomagnesemia; K25.7 Chronic gastric ulcer without hemorrhage or perforation; E83.39 Other disorders of phosphorus metabolism; E83.52 Hypercalcemia; R00.1 Bradycardia, unspecified; Z79.4 Long term (current) use of insulin; Z95.1 Presence of aortocoronary bypass graft; Z87.440 Personal history of urinary (tract) infections; Z82.49 Family history of ischemic heart disease and other diseases of the circulatory system; Z79.899 Other long term (current) drug therapy; Z68.23 Body mass index [BMI] 23.0-23.9, adult

== ENCOUNTER 2019-09-25 12:31 | Emergency (ER) | payer OTHER ==
[~2019-09-25] VITALS: Ht 167.6 cm; Wt 74.8 kg
[~2019-09-25 12:31] MED LIST changes: +GLUCOPHAGE1000 MG PO; +GLUCOPHAGE500 M1 PO; +MAGOX 400400 MG PO; +MYLANTA MAXIMU355 M1 PO; +XARE20MG PO
[2019-09-25 13:41] LABS: BILIRUBIN NEGATIVE (NEGATIVE); CLARITY CLOUDY (CLEAR); COLOR YELLOW (YELLOW); GLUCOSE NEGATIVE (NEGATIVE); KETONE NEGATIVE (NEGATIVE)
[2019-09-25 13:42] LABS: BLOOD 3+ (NEGATIVE); LEUKO ESTERASE 3+ (NEGATIVE); NITRITE POSITIVE (NEGATIVE); PH 6.5 (5.0-9.0); UROBILINOGEN 0.2 E.U./dl (0.2-1.0)
[2019-09-25 13:47] LABS: BACTERIA 4+; RBC TNTC rbc/hpf (0-2); WBC TNTC wbc/hpf (0-5)
[2019-09-25 15:18] LABS: BASO % 0.4 % (0.0-1.0); EOS # 0.2 10*3/uL (0.0-0.4); EOS % 1.6 % (1.0-4.0); HEMATOCRIT 36.1 % (37.0-47.0); LYMPH # 3.6 10*3/uL (1.3-4.4); LYMPH % 37.1 % (27.0-41.0); MEAN CELL VOLUME 101.1 fl (81.0-99.0); MEAN CORPUSCULAR HGB 31.7 pg (27.0-31.0); MEAN CORPUSCULAR HGB CONC 31.3 g/dl (33.0-37.0); MEAN PLATELET VOLUME 9.1 fl (9.6-12.3); MONO # 0.7 10*3/uL (0.1-1.0); NEUT # 5.1 10*3/uL (2.3-7.9); NEUT % 52.9 % (47.0-73.0); PLATELET COUNT AUTOMATED 277 10*3/uL (130-400); RED BLOOD COUNT 3.57 10*6/uL (4.10-5.10); RED CELL DISTRI WIDTH 15.3 % (0-14.5); WHITE BLOOD COUNT 9.6 10*3/uL (4.8-10.8)
[2019-09-25 15:34] LABS: ALBUMIN 2.1 gm/dl (3.1-4.5); CREATININE 1.38 mg/dL (0.55-1.02); POTASSIUM 4.7 mmol/L (3.5-5.1); TOTAL PROTEIN 5.4 gm/dL (6.4-8.2)
[2019-09-25 16:09] LABS: ACT PARTIAL THROMBO TIME 38.1 SECONDS (20.0-32.1); INTERNATIONAL NORM RATIO 1.3 (2.0-3.5)
[2019-09-25] MEDS ORDERED: ESTRACE1 M1 PO (17:16)
[2019-09-25] MEDS ORDERED: LEVOFLOXACIN500 MG PO (17:16)
== END 2019-09-25 17:19 | disposition other institution (70) ==
LOC: ED 12:31
PROVIDERS: Nurse Practitioner Family
DX: N93.9 Abnormal uterine and vaginal bleeding, unspecified (principal); N39.0 Urinary tract infection, site not specified; I13.0 Hypertensive heart and chronic kidney disease with heart failure and stage 1 through stage 4 chronic kidney disease, or unspecified chronic kidney disease; E11.22 Type 2 diabetes mellitus with diabetic chronic kidney disease; I50.9 Heart failure, unspecified; N18.4 Chronic kidney disease, stage 4 (severe); E78.5 Hyperlipidemia, unspecified; E03.9 Hypothyroidism, unspecified; I48.91 Unspecified atrial fibrillation; I25.10 Atherosclerotic heart disease of native coronary artery without angina pectoris; I25.2 Old myocardial infarction; Z95.1 Presence of aortocoronary bypass graft; Z79.899 Other long term (current) drug therapy; Z79.84 Long term (current) use of oral hypoglycemic drugs

== ENCOUNTER 2019-09-26 14:14 | Emergency (ER) | payer OTHER ==
[~2019-09-26] VITALS: Ht 170.1 cm; Wt 59.0 kg
[~2019-09-26 14:14] MED LIST changes: +ESTRACE1 M1 PO; +LEVOFLOXACIN500 MG PO
[2019-09-26 15:34] LABS: BASO % 0.4 % (0.0-1.0); EOS # 0.1 10*3/uL (0.0-0.4); EOS % 1.1 % (1.0-4.0); HEMATOCRIT 35.4 % (37.0-47.0); LYMPH # 2.6 10*3/uL (1.3-4.4); LYMPH % 32.9 % (27.0-41.0); MEAN CELL VOLUME 100.9 fl (81.0-99.0); MEAN CORPUSCULAR HGB 31.9 pg (27.0-31.0); MEAN CORPUSCULAR HGB CONC 31.6 g/dl (33.0-37.0); MEAN PLATELET VOLUME 8.9 fl (9.6-12.3); MONO # 0.7 10*3/uL (0.1-1.0); MONO % 8.1 % (3.0-9.0); NEUT # 4.5 10*3/uL (2.3-7.9); NEUT % 56.4 % (47.0-73.0); PLATELET COUNT AUTOMATED 268 10*3/uL (130-400); RED BLOOD COUNT 3.51 10*6/uL (4.10-5.10); RED CELL DISTRI WIDTH 15.5 % (0-14.5)
[2019-09-26 15:48] LABS: CREATININE 1.36 mg/dL (0.55-1.02); POTASSIUM 5.2 mmol/L (3.5-5.1); TOTAL PROTEIN 5.2 gm/dL (6.4-8.2)
== END 2019-09-26 16:11 | disposition home or self-care (01) ==
LOC: ED 14:14
PROVIDERS: Physician Assistant
DX: N93.9 Abnormal uterine and vaginal bleeding, unspecified (principal); N39.0 Urinary tract infection, site not specified; I13.0 Hypertensive heart and chronic kidney disease with heart failure and stage 1 through stage 4 chronic kidney disease, or unspecified chronic kidney disease; E11.22 Type 2 diabetes mellitus with diabetic chronic kidney disease; I50.9 Heart failure, unspecified; N18.4 Chronic kidney disease, stage 4 (severe); E03.9 Hypothyroidism, unspecified; E78.5 Hyperlipidemia, unspecified; Z95.1 Presence of aortocoronary bypass graft; Z79.899 Other long term (current) drug therapy; Z79.84 Long term (current) use of oral hypoglycemic drugs; Z79.2 Long term (current) use of antibiotics

== ENCOUNTER 2019-10-04 23:58 | Emergency (ER) | payer OTHER ==
[~2019-10-04] VITALS: Ht 167.6 cm
[2019-10-05 00:41] LABS: HEMATOCRIT 35.6 % (37.0-47.0)
== END 2019-10-05 01:55 | disposition other institution (70) ==
LOC: ED 23:58
PROVIDERS: Physician Assistant
DX: N93.9 Abnormal uterine and vaginal bleeding, unspecified (principal); I10 Essential (primary) hypertension; E11.9 Type 2 diabetes mellitus without complications; E03.9 Hypothyroidism, unspecified; Z79.899 Other long term (current) drug therapy; Z79.84 Long term (current) use of oral hypoglycemic drugs; Z79.2 Long term (current) use of antibiotics; Z95.1 Presence of aortocoronary bypass graft